=== PATIENT | male | born 2000 | race Caucasian/White ===

== ENCOUNTER → 2018-03-13 07:38 | Outpatient (CLI) | payer OTHER, SELFPAY ==
--- NOTE | 2018-03-13 07:42 | NM_ITS ---
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 WHOLE BODY and LIMITED 99m Tc MDP RADIONUCLIDE BONE SCINTIGRAPHY WITH SPECT-CT COMPARISON: None available FINDINGS: Following the intravenous administration of 26.0 mCi of 99m Tc MDP, total body and limited bone acquisitions of the lumbar spine and pelvis and SPECT-CT reconstructions of the lumbar spine and pelvis reveal: 1. Increased radiopharmaceutical concentration is identified in the posterior inferior acetabulum of the left hip, the patellofemoral compartment of the right knee. 2. Enhanced uptake is identified in the lateral cortical compartment of the bilateral proximal-mid tibial diaphyses. 3. The remaining skeletal structures are scintigraphically unremarkable with normal-appearing rugal images and urinary bladder activity identified. SPECT-CT reconstructions of the lumbar spine and pelvis otherwise demonstrate no additional scintigraphic abnormalities. NM/Bone Scan Whole Body IMPRESSION: 1. The increase in radiopharmaceutical concentration identified in the posterior inferior acetabulum of the left hip and patellofemoral compartment of the right knee likely represent components of periostitis or potential traumatic synovial inflammation regarding the right knee. Correlation with plain film radiography may be of benefit for further evaluation. 2. There is scintigraphic evidence of periostitis-shinsplints involving the bilateral lower extremities. (Mayco et al, J Nucl Med 28: 452, 1987). 3. Meticulous attention paid to the lumbar spine and pelvis demonstrates no evidence of osteoblastic turnover attributed to spondylolysis. Electronically Signed: Delvin Frances DO at 23:43 EDT Tel , Service support ,
== END ==
PROVIDERS: Visit Provider Orthopaedic Surgery
DX: M54.5 Low back pain (principal)
CPT/HCPCS: 78306; 78320